=== PATIENT | male | born 2000 | race African-American/Black ===

== ENCOUNTER 2022-05-07 08:45 | Emergency (ER) | payer SELFPAY ==
[~2022-05-07] VITALS: Ht 187 cm; Wt 63.0 kg
--- NOTE | 2022-05-07 09:13 | ED General ---
General Stated Complaint: FEVER,N/V,COUGH Source of Information: Patient Exam Limitations: No Limitations History of Present Illness Date Seen by Provider: May 07, 2022 Time Seen by Provider: 08:39 Initial Comments Patient to the ER by private conveyance with his significant other chief complaint since yesterday evening has been having fever, nausea and vomiting, malaise sore throat and runny nose. He has not had a COVID-19 vaccination. Last time he had vaccinations for flu or anything else was 2 years ago [place]. He has not had any recent travel outside the [facility] in the past couple months. No camping, tick bites, drinking from unsafe water or sick contacts. He does not have a cough, shortness of air. No history of abdominal surgeries or significant medical history. He is having normal bowel movements and no dysuria. He did have a little bit of epigastric pain before vomiting. He vomited this morning and again right before coming into the ER. He took ibuprofen last night and about an hour prior to arrival. Allergies and Home Medications Allergies Coded Allergies: No Known Drug Allergies (Unverified , 05/07/22) Patient Home Medication List Home Medication List Reviewed: Yes Review of Systems Review of Systems Constitutional: chills; No diaphoresis; fever EENTM: nose congestion; No ear discharge, No ear pain Respiratory: No cough, No phlegm, No short of breath Cardiovascular: No chest pain, No palpitations Gastrointestinal: see HPI; No abdominal pain, No constipation; nausea, vomiting Genitourinary: No discharge, No dysuria Musculoskeletal: No back pain, No joint pain Psychiatric/Neurological: Denies Headache, Denies Numbness All Other Systems Reviewed Negative Unless Noted: Yes Past Zpjflat-Kgxezo-Mkzolg Hx Patient Social History Tobacco Use?: No Use of E-Cig and/or Vaping dev: No Substance use?: No Alcohol Use?: No Physical Exam Vital Signs Vital Signs - First Documented 05/07/22 09:25 Temp 38.3 Pulse 115 Resp 16 B/P (MAP) 149/80 (103) Pulse Ox 97 O2 Delivery Room Air Capillary Refill : Height, Weight, BMI Height: '" Weight: lbs. oz. kg; BMI Method: General Appearance: WD/WN, Mild Distress Eyes: Bilateral Eye Normal Inspection, Bilateral Eye PERRL, Bilateral Eye EOMI HEENT: PERRL/EOMI, Pharynx Normal, Moist Mucous Membranes Neck: Full Range of Motion, Normal Inspection, Non Tender, Supple Respiratory: Chest Non Tender, Lungs Clear, Normal Breath Sounds, No Accessory Muscle Use, No Respiratory Distress Cardiovascular: Regular Rate, Rhythm, No Edema, Normal Peripheral Pulses Gastrointestinal: Normal Bowel Sounds, No Organomegaly, Non Tender, Soft Neurologic/Psychiatric: Alert, Oriented x3, No Motor/Sensory Deficits Skin: Normal Color, Warm/Dry Progress/Results/Core Measures Suspected Sepsis SIRS Temperature: Pulse: Respiratory Rate: Laboratory Tests 05/07/22 09:10: White Blood Count 8.2 Blood Pressure / Mean: Laboratory Tests 05/07/22 09:10: Creatinine 1.31H, Platelet Count 226, Total Bilirubin 0.6 Results/Orders Lab Results Laboratory Tests Test 05/07/22 09:09 05/07/22 09:10 Range/Units Group A Streptococcus Screen NEGATIVE NEGATIVE White Blood Count 8.2 4.3-11.0 10^3/uL Red Blood Count 4.66 4.30-5.52 10^6/uL Hemoglobin 15.4 13.3-17.7 g/dL Hematocrit 45 40-54 % Mean Corpuscular Volume 97 80-99 fL Mean Corpuscular Hemoglobin 33 25-34 pg Mean Corpuscular Hemoglobin Concent 34 32-36 g/dL Red Cell Distribution Width 11.4 10.0-14.5 % Platelet Count 226 130-400 10^3/uL Mean Platelet Volume 10.7 9.0-12.2 fL Immature Granulocyte % (Auto) 1 % Neutrophils (%) (Auto) 81 H 42-75 % Lymphocytes (%) (Auto) 9 L 12-44 % Monocytes (%) (Auto) 7 0-12 % Eosinophils (%) (Auto) 1 0-10 % Basophils (%) (Auto) 1 0-10 % Neutrophils # (Auto) 6.7 1.8-7.8 10^3/uL Lymphocytes # (Auto) 0.8 L 1.0-4.0 10^3/uL Monocytes # (Auto) 0.6 0.0-1.0 10^3/uL Eosinophils # (Auto) 0.1 0.0-0.3 10^3/uL Basophils # (Auto) 0.0 0.0-0.1 10^3/uL Immature Granulocyte # (Auto) 0.1 0.0-0.1 10^3/uL Sodium Level 139 135-145 MMOL/L Potassium Level 3.5 L 3.6-5.0 MMOL/L Chloride Level 103 98-107 MMOL/L Carbon Dioxide Level 24 21-32 MMOL/L Anion Gap 12 5-14 MMOL/L Blood Urea Nitrogen 10 7-18 MG/DL Creatinine 1.31 H 0.60-1.30 MG/DL Estimat Glomerular Filtration Rate 80 BUN/Creatinine Ratio 8 Glucose Level 111 H 70-105 MG/DL Calcium Level 10.3 H 8.5-10.1 MG/DL Corrected Calcium 8.5-10.1 MG/DL Total Bilirubin 0.6 0.1-1.0 MG/DL Aspartate Amino Transf (AST/SGOT) 20 5-34 U/L Alanine Aminotransferase (ALT/SGPT) 19 0-55 U/L Alkaline Phosphatase 100 40-136 U/L Total Creatine Kinase 170 30-200 U/L C-Reactive Protein High Sensitivity 0.44 0.00-0.50 MG/DL Total Protein 8.0 6.4-8.2 GM/DL Albumin 4.7 H 3.2-4.5 GM/DL Lipase 22 8-78 U/L SARS-CoV-2 RNA (RT-PCR) Detected H Not Detecte My Orders Orders - CY CHAIDEZ Covid 19 Inhouse Test (05/07/22 09:03) Ed Iv/Invasive Line Start (05/07/22 09:04) Lactated Ringers (Lr 1000 Ml Iv Solution (05/07/22 09:15) Pantoprazole Injection (Protonix Injecti (05/07/22 09:15) Ondansetron Injection (Zofran Injectio (05/07/22 09:15) Cbc With Automated Diff (05/07/22 09:04) Comprehensive Metabolic Panel (05/07/22 09:04) Hs C Reactive Protein (05/07/22 09:04) Acetaminophen Tablet (Tylenol Tablet) (05/07/22 09:15) Rapid Strep A Screen (05/07/22 09:13) Lipase (05/07/22 09:18) Creatine Kinase (05/07/22 09:19) Bebtelovimab (Bebtelovimab) (05/07/22 10:15) Nursing Communication (Order) (05/07/22 10:07) Ed Iv/Invasive Line Start (05/07/22 10:07) Ns Iv 500 Ml (Sodium Chloride 0.9%) (05/07/22 10:15) Promethazine Injection (Phenergan Injec (05/07/22 10:15) Diphenhydramine Injection (Benadryl Inje (05/07/22 10:15) Medications Given in ED Current Medications Medications Dose Ordered Sig/Griffin Route Start Time Stop Time Status Last Admin Dose Admin Bebtelovimab 175 mg ONCE ONCE IV 05/07/22 10:15 05/07/22 10:16 DC 05/07/22 10:39 175 MG Diphenhydramine HCl 25 mg ONCE ONCE IVP 05/07/22 10:15 05/07/22 10:16 DC 05/07/22 10:29 25 MG Lactated Ringer's 1,000 ml @ 0 mls/hr Q0M ONCE IV 05/07/22 09:15 05/07/22 09:16 DC 05/07/22 09:19 0 MLS/HR Ondansetron HCl 8 mg ONCE ONCE IVP 05/07/22 09:15 05/07/22 09:16 DC 05/07/22 09:19 8 MG Pantoprazole 40 mg ONCE ONCE IV 05/07/22 09:15 05/07/22 09:16 DC 05/07/22 09:19 40 MG Promethazine HCl 25 mg ONCE ONCE IVP 05/07/22 10:15 05/07/22 10:16 DC 05/07/22 10:29 25 MG Sodium Chloride 500 ml @ 0 mls/hr Q0M ONCE IV 05/07/22 10:15 05/07/22 10:16 DC 05/07/22 10:30 0 MLS/HR Vital Signs/I&O 05/07/22 09:25 Temp 38.3 Pulse 115 Resp 16 B/P (MAP) 149/80 (103) Pulse Ox 97 O2 Delivery Room Air Capillary Refill : Progress Note #1: Time: 09:18 Progress Note 8 of Zofran, 40 mg of pantoprazole, a liter of lactated Ringer's, a gram of Tylenol for his fever of 101 and will check a COVID and rapid strep and basic labs including a lipase. Progress Note #2: Time: 10:08 Progress Note The patient is still quite nauseated. His fluids are done. We discussed that doing pills such as Paxilovid may be difficult given his primary complaint of nausea and vomiting. Instead we will try to do the Bebtelovimab infusion and give him another 500 cc of saline, 25 mg of Phenergan and 25 mg of Benadryl for his nausea. We discussed that this would be used with an emergency use authorization by the FDA and CDC and he is okay with this plan. Progress Note #3: Time: 11:37 Progress Note Patient is still having nausea and spitting up. He tried taking some ice chips and says every time he takes them he gets nauseated. His pressures 100/43 after 1500 cc of fluid. We discussed going home and attempting pills with return precautions versus staying on observation for intractable nausea and vomiting. He has completed his monoclonal antibody infusion without significant adverse symptoms. The patient is okay with staying. Rooms are very tight in the hospital so he may have to remain in the ER. The patient decided to change his mind and would like to trial outpatient therapy first before going into the hospital. We will set him up with some ondansetron, Phenergan and return precautions. His friend will be home with him and watching him. Liquid diet. Departure Impression Primary Impression: COVID-19 Additional Impressions: Nausea and vomiting Qualified Codes: R11.2 - Nausea with vomiting, unspecified Mild dehydration Disposition: 01 HOME, SELF-CARE Condition: Stable Departure-Patient Inst. Decision time for Depature: 11:42 Referrals: NO,LOCAL PHYSICIAN (PCP/Family) Primary Care Physician Add. Discharge Instructions: Ondansetron 1 to 2 tablets every 6 hours as needed for nausea or vomiting. Phenergan 1 tablet every 6 hours as needed for nausea or vomiting if ondansetron does not work. You can take Benadryl 25 mg every 6 hours to help with nausea and vomiting if the ondansetron does not work. If you are having intractable nausea and vomiting or becoming dehydrated then return to the ER for reevaluation and management. Tylenol 1000 mg every 8 hours as needed for body aches, fever or pain. Ibuprofen 800 mg every 8 hours as needed for body aches, fever or pain. You may return off isolation on 05/18/2022 if you are symptom-free for the previous 24 hours. Scripts Ondansetron (Ondansetron Odt) 4 Mg Tab.rapdis 4-8 MG PO Q6H PRN for NAUSEA/VOMITING, #20 TAB 0 Refills Prov: CY CHAIDEZ 05/07/22 Promethazine HCl (Promethazine Tablet) 25 Mg Tablet 25 MG PO Q6H PRN for NAUSEA/VOMITING, #15 TAB 0 Refills Prov: CY CHAIDEZ 05/07/22 Work/School Note: Work Release Form Date Seen in the Emergency Department: May 07, 2022 Return to Work: May 18, 2022 Restrictions: Return-No Fever (24hrs) CY CHAIDEZ May 07, 2022 09:13
[2022-05-07] MEDS ORDERED: ACETAMINOPHEN 500 MG TAB (TYLENOL) PO ONE (09:15)
[2022-05-07] MEDS ORDERED: LACTATED RINGERS 1,000 ML IV ONE (09:15)
[2022-05-07] MEDS ORDERED: ONDANSETRON 4 MG/2 ML (SDV) Z0FRAN IVP ONE (09:15)
[2022-05-07] MEDS ORDERED: PANTOPRAZOLE 40 MG (PROTONIX) VIAL IV ONE (09:15)
[2022-05-07 09:22] LABS: BASOPHILS % (AUTO) 1 % (0-10); EOSINOPHILS # (AUTO) 0.1 10^3/uL (0.0-0.3); EOSINOPHILS % (AUTO) 1 % (0-10); HEMATOCRIT 45 % (40-54); HEMOGLOBIN 15.4 g/dL (13.3-17.7); LYMPHOCYTES # (AUTO) 0.8 10^3/uL (1.0-4.0); LYMPHOCYTES % (AUTO) 9 % (12-44); MEAN CORPUSCULAR HEMOGLOBIN 33 pg (25-34); MEAN CORPUSCULAR HGB CONC 34 g/dL (32-36); MEAN CORPUSCULAR VOLUME 97 fL (80-99); MEAN PLATELET VOLUME 10.7 fL (9.0-12.2); MONOCYTES # (AUTO) 0.6 10^3/uL (0.0-1.0); MONOCYTES % (AUTO) 7 % (0-12); NEUTROPHILS # (AUTO) 6.7 10^3/uL (1.8-7.8); NEUTROPHILS % (AUTO) 81 % (42-75); PLATELET COUNT 226 10^3/uL (130-400); WHITE BLOOD COUNT 8.2 10^3/uL (4.3-11.0)
[2022-05-07 09:37] LABS: ALBUMIN 4.7 GM/DL (3.2-4.5); CHLORIDE 103 MMOL/L (98-107); POTASSIUM 3.5 MMOL/L (3.6-5.0); SODIUM 139 MMOL/L (135-145)
[2022-05-07 09:38] LABS: CALCIUM 10.3 MG/DL (8.5-10.1)
[2022-05-07 09:39] LABS: GLUCOSE 111 MG/DL (70-105)
[2022-05-07 09:40] LABS: CARBON DIOXIDE 24 MMOL/L (21-32)
[2022-05-07 09:41] LABS: BILIRUBIN,TOTAL 0.6 MG/DL (0.1-1.0)
[2022-05-07 09:43] LABS: ALKALINE PHOSPHATASE 100 U/L (40-136); CREATININE SERUM 1.31 MG/DL (0.60-1.30); GFR ESTIMATED 80
[2022-05-07 09:44] LABS: BUN/CREATININE RATIO 8
[2022-05-07 09:46] LABS: ALANINE AMINOTRANSFERASE 19 U/L (0-55)
[2022-05-07 09:47] LABS: CREATINE KINASE 170 U/L (30-200); LIPASE 22 U/L (8-78)
[2022-05-07] MEDS ORDERED: NS IV 500 ML 500 ML IV ONE (10:15)
[2022-05-07] MEDS ORDERED: PROMETHAZINE INJ 25 MG/ML (PHENERGAN) AMP IVP ONE (10:15)
[2022-05-07] MEDS ORDERED: BEBTELOVIMAB 175 MG/2 ML VIAL IV ONE (10:15)
[2022-05-07] MEDS ORDERED: diphenhydrAMINE 50 MG/ML INJ (BENADRYL) IVP ONE (10:15)
[2022-05-07] MEDS ORDERED: ONDA4TAB11 PO (11:46)
[2022-05-07] MEDS ORDERED: PROM25TA14 PO (11:46)
[2022-05-07 12:05] VITALS: BP 121/57
== END 2022-05-07 12:05 | disposition home or self-care (01) ==
LOC: ER 08:50
DX: U07.1 COVID-19 (principal); R11.2 Nausea with vomiting, unspecified; E86.0 Dehydration; Z28.310 Unvaccinated for COVID-19
CPT/HCPCS: 36415; 80053; 82550; 83690; 85025; 86141; 87430; 87636

== ENCOUNTER 2022-09-11 07:49 | Emergency (ER) | payer OTHER ==
[~2022-09-11] VITALS: Ht 187.9 cm; Wt 71.6 kg
[~2022-09-11 07:49] MED LIST: ONDA4TAB11 PO; PROM25TA14 PO
--- NOTE | 2022-09-11 08:26 | ED EENT ---
History of Present Illness General Chief Complaint: Oral/Throat Problems Stated Complaint: SORE THROAT/LEFT EAR PAIN Nursing Triage Note: PT AMB TO [facility] 5 WITH COMPLAINT OF SORE THROAT AND LEFT EAR PAIN. STATES STARTED TWO DAYS AGO. Source: patient Exam Limitations: no limitations History of Present Illness Date Seen by Provider: Sep 11, 2022 Time Seen by Provider: 08:21 Initial Comments Patient is a 22-year-old male who presents to the emergency department today with a chief complaint of sore throat and left ear pain onset over the last 2 days. He took 1 [id number] ibuprofen approximately 20 minutes prior to arrival. He states it hurts to swallow. He denies any hearing changes. He has a little congestion and runny nose. Is not COVID vaccinated. Denies shortness of breath or cough. No problems with bowel or bladder. No rashes, joint pain or swelling. No daily medications. No allergies to medications. All other review of systems reviewed and negative except as stated. Timing/Duration: abrupt Severity: moderate Location: throat Prearrival Treatment: over the counter meds (1 200mg ibuprofen 20m prior to arrival) Associated Symptoms: poor fluid intake, poor solids intake, sore throat, other (left ear pain) Allergies and Home Medications Allergies Coded Allergies: No Known Drug Allergies (Unverified , 05/07/22) Patient Home Medication List Home Medication List Reviewed: Yes Ondansetron (Ondansetron Odt) 4 Mg Tab.rapdis, 4-8 MG PO Q6H PRN for NAUSEA/VOMITING Prescribed by: CY CHAIDEZ on 05/07/22 1146 Promethazine HCl (Promethazine Tablet) 25 Mg Tablet, 25 MG PO Q6H PRN for NAUSEA/VOMITING Prescribed by: CY CHAIDEZ on 05/07/22 1146 Review of Systems Review of Systems Constitutional: see HPI Eyes: No Symptoms Reported Ears: Pain (left) Nose: congestion Mouth: no symptoms reported Throat: pain, swelling Respiratory: no symptoms reported Cardiovascular: no symptoms reported Gastrointestinal: no symptoms reported Musculoskeletal: no symptoms reported Skin: no symptoms reported Neurological: No Symptoms Reported All Other Systems Reviewed Negative Unless Noted: Yes Past Sgwitzk-Ehptmm-Rqbaxq Hx Patient Social History Tobacco Use?: No Use of E-Cig and/or Vaping dev: No Substance use?: No Alcohol Use?: No Pt feels they are or have been: No Physical Exam Vital Signs Vital Signs - First Documented 09/11/22 08:06 Temp 37.7 Pulse 94 Resp 16 B/P (MAP) 140/79 (99) Pulse Ox 96 O2 Delivery Room Air Height, Weight, BMI Height: '" Weight: lbs. oz. kg; 20.00 BMI Method: General Appearance: WD/WN, no apparent distress Eyes: bilateral eye normal inspection, bilateral eye PERRL, bilateral eye EOMI Ears: bilateral ear auricle normal, bilateral ear canal normal, bilateral ear TM normal Nose: normal inspection Mouth/Throat: other (Beefy red edema bilateral tonsils; uvula is also erythematous and boggy. Slight amount of exudate noted to both tonsils. No dental issues noted) Neck: full range of motion, supple Cardiovascular: regular rate, rhythm Respiratory: lungs clear, normal breath sounds, no respiratory distress, no accessory muscle use Gastrointestinal: non tender, soft Neurologic/Psychiatric: alert, normal mood/affect, oriented x 3 Skin: normal color, warm/dry Progress/Results/Core Measures Results/Orders Lab Results Laboratory Tests Test 09/11/22 08:30 Range/Units Group A Streptococcus Screen NEGATIVE NEGATIVE Micro Results Microbiology 09/11/22 Throat Culture - Preliminary, Resulted My Orders Orders - ARUN THOMAS MD Rapid Strep A Screen (09/11/22 08:26) Dexamethasone Injection (Decadron Injec (09/11/22 08:30) Ibuprofen Tablet (Motrin Tablet) (09/11/22 08:30) Medications Given in ED Vital Signs/I&O Blood Pressure Mean: 99 Progress Progress Note : Time: 08:57 Progress Note rapid strep neg - will defer antibiotics until the culture returns. He does not have rash, lymphadenopathy or fever. Will treat for viral etiology at this time. Supportive care, OTC decongestants, Ibuprofen. Was given steroids here in the ED. Return precautions given. Departure Impression Primary Impression: Pharyngitis Qualified Codes: J02.9 - Acute pharyngitis, unspecified Disposition: 01 HOME, SELF-CARE Condition: Stable Departure-Patient Inst. Decision time for Depature: 08:59 Referrals: [facility] (PCP/Family) Primary Care Physician Patient Instructions: Sore Throat in Adults Add. Discharge Instructions: Follow-up at the [facility] on campus for any new, concerning symptoms. Take the antibiotics as directed for the next 10 days. Please finish the entire course, all 10 days. You can take [id number] ibuprofen 3 pills which is 600 mg (the prescription strength) every 6-8 hours with food as needed for pain. Warm salt water gargles (1 glass of warm water with 1 teaspoon of salt mixed in) 2-3 times daily for throat pain. If you have any worsening pain, high fever, difficulty breathing or swallowing please come back to the emergency department for reevaluation. Copy Copies To 1: KYRA PAINTING MD, KATHRYN M MD Sep 11, 2022 08:26
[2022-09-11] MEDS ORDERED: IBUPROFEN TABLET 200 MG TAB PO ONE (08:30)
[2022-09-11 09:35] VITALS: BP 114/72
== END 2022-09-11 09:35 | disposition home or self-care (01) ==
LOC: EDUNIT# 07:49 → ER 07:53
DX: J02.9 Acute pharyngitis, unspecified (principal)
CPT/HCPCS: 87430; 99284